=== PATIENT | male | born 2005 | race Caucasian/White ===

== ENCOUNTER 2024-02-17 00:28 | Emergency (ER) | payer OTHER ==
[~2024-02-17] VITALS: Ht 185.4 cm; Wt 102.6 kg
[2024-02-17 00:33] VITALS: TEMP 98.4
[2024-02-17 01:04] VITALS: BP 133/69; O2SAT 98
== END 2024-02-17 01:46 | disposition home or self-care (01) ==
LOC: M ED 00:28
DX: Z04.1 Encounter for examination and observation following transport accident (principal)

== ENCOUNTER 2024-10-03 13:35 | Emergency (ER) | payer OTHER ==
[~2024-10-03] VITALS: Ht 185.4 cm; Wt 100.0 kg
[2024-10-03 16:03] VITALS: BP 133/73; TEMP 99.1; O2SAT 97
== END 2024-10-03 18:10 | disposition home or self-care (01) ==
LOC: M ED 13:35
DX: S90.31XA Contusion of right foot, initial encounter (principal); W22.8XXA Striking against or struck by other objects, initial encounter; Y93.89 Activity, other specified; Y92.009 Unspecified place in unspecified non-institutional (private) residence as the place of occurrence of the external cause; Y99.9 Unspecified external cause status